=== PATIENT | female | born 1960 | race Caucasian/White ===

== ENCOUNTER → 2016-10-15 | Outpatient (CLI) | payer SELFPAY ==
[~2016-10-15] MED LIST: REGADENOSON 0.4 MG/5 ML DISP.SYRIN. IV ONE
--- NOTE | 2016-10-15 11:28 | PCVCIMAG ---
APPROVED REPORT Exam: Nuclear Stress Test Indication: Atrial Fibrillation, Abnormal EKG, Dyspnea Stress Nurse: Ariana Riojas RN, Geeta Banda RN [place] Tech:Viola Lewill [facility] Ht: 5 ft 10 in Wt: 205 lbs BSA: 2.11 m2 HR: 75 bpm BMI: 29.4 Rhythm: NSR Medical History Medical History: HTN, CVD, Atrial Fibrillation, Stroke/TIA, Smoking - Former Allergies: Codeine Cardiac Risk Factors: Age Pretest Chest Pain Characteristics: No chest pain Stress Test Details Stress Test: Pharmacologic stress was paired with low level exercise. HR Resting HR: 75 bpmMax Heart Rate (APMHR): 162 bpm Max HR Achieved: 118 bpmTarget HR (85% APMHR): 137 bpm % of APMHR: 72 Recovery HR: 86 bpm BP Resting BP: 174/80 mmHg Max BP: 188/94 mmHg Recovery BP: 180/86 mmHg ECG Resting ECG: Sinus Rhythm, nonspecific ST-T abnormalities Stress ECG: Sinus Rhythm, nonspecific ST-T abnormalities ST Change: Non-ischemic Clinical Reason for Termination: Completed protocol Stress Symptoms: Dyspnea, recovered during recovery Exercise duration: 4 min 00 sec Exercise capacity: 1.6 METs NM EXAM: Myocardial Perfusion REST/STRESS Imaging Protocol: Rest Tc-99m/Stress Tc-99m 1 day Resting Data Rest SPECT myocardial perfusion imaging was performed in supine position 45 minutes following the intravenous injection of 10.8 mCi of Tc-99m Sestamibi. Time of rest injection: 819 Date: 10/15/2016 Pharmacologic Stress Pharmacologic stress test was performed by injecting Regadenoson 0.4 mg IV push followed by the intravenous injection of 34.7 mCi of Tc-99m Sestamibi. Time of stress injection: 854 Date: 10/15/2016 Administration Route: IV Administration Site: Left Arm Gated Stress SPECT was performed 45 minutes after stress injection. The images were gated to evaluate regional wall motion and calculate left ventricular ejection fraction. Study Quality Study: Good Artifact: Mild Breast artifact Study Data Post stress, the left ventricular ejection was 67%.. SSS: 0 SRS: 0 SDS: 0 TID = 0.83. Perfusion There is a small area of mildly reduced uptake in the distal segment of the anterior wall which is seen on the stress images as well as the resting images. This area thickens and moves normally and is most consistent with attenuation artifact. Wall Motion Normal left ventricular wall motion. Clinical Findings: Nondiagnostic EKG Findings: Nonischemic Nuclear Conclusion This study is of low probability for inducible ischemia or prior infarct. Normal global and segmental LV systolic function.
== END | disposition home or self-care (01) ==
LOC: PCVCIMAG 08:03
PROVIDERS: ATTEND Internal Medicine Cardiovascular Disease
DX: I48.0 Paroxysmal atrial fibrillation (principal); I10 Essential (primary) hypertension; R94.31 Abnormal electrocardiogram [ECG] [EKG]; Z88.5 Allergy status to narcotic agent; Z79.899 Other long term (current) drug therapy; Z86.73 Personal history of transient ischemic attack (TIA), and cerebral infarction without residual deficits; Z90.49 Acquired absence of other specified parts of digestive tract; Z98.51 Tubal ligation status; Z87.891 Personal history of nicotine dependence
CPT/HCPCS: 78452; 93017; A9500; G0463; J2785; 93005